=== PATIENT | female | born 1985 | race Two or more races ===

== ENCOUNTER 2021-06-22 07:43 | Inpatient (IN) | payer OTHER ==
[~2021-06-22] VITALS: Ht 152.4 cm; Wt 91.6 kg
[2021-06-22] MEDS ORDERED: PRENA1 TRUE CO1 EACH PO (09:08)
[2021-06-25] MEDS ORDERED: IBU600 MG PO (09:09)
== END 2021-06-25 17:19 | disposition home or self-care (01) | DRG 788 ==
LOC: LDR 07:43 → O/R 07:43 → SURG-SUITE 06-23 08:29
PROVIDERS: ADMIT Obstetrics & Gynecology; ATTEND Obstetrics & Gynecology
PROC: 10907ZC Drainage of Amniotic Fluid, Therapeutic from Products of Conception, Via Natural or Artificial Opening (ICD-10-PCS; 2021-06-22)
PROC: 3E033VJ Introduction of Other Hormone into Peripheral Vein, Percutaneous Approach (ICD-10-PCS; 2021-06-22)
PROC: 4A1HXFZ Monitoring of Products of Conception, Cardiac Rhythm, External Approach (ICD-10-PCS; 2021-06-22)
PROC: 10D00Z1 Extraction of Products of Conception, Low, Open Approach (ICD-10-PCS; principal; 2021-06-22 22:30)
DX: O62.1 Secondary uterine inertia (principal); Z3A.39 39 weeks gestation of pregnancy; Z37.0 Single live birth; Z20.822 Contact with and (suspected) exposure to COVID-19